=== PATIENT | female | born 1935 | race Caucasian/White ===

== ENCOUNTER 2018-10-28 13:16 | Inpatient (IN) | payer MEDICARE, OTHER ==
[~2018-10-28] VITALS: Ht 154.9 cm; Wt 78.9 kg
--- NOTE | 2018-10-28 13:16 | NUR ---
PT BIB PRIVATE EMT FROM HOME FOR MED CLEARANCE, ON HOLD FOR GD, AAOX2-3, RESPIRATIONS EVEN AND UNLABORED, NO SOB, DENIES ANY PAIN/DISCOMFORT, NAD NOTED, PT ON MONITOR, PENDING ER PROVIDER MARILYN
[2018-10-28] MEDS ORDERED: DONE5TAB34 PO (14:34)
[2018-10-28] MEDS ORDERED: ATOR40TA PO (14:34)
[2018-10-28] MEDS ORDERED: ALPR0.25 PO (14:34)
[2018-10-28] MEDS ORDERED: METO25TA20 PO (14:34)
[2018-10-28 14:50] LABS: BASOPHILS % (AUTO) 0.8 % (0.0-2.0); EOSINOPHILS % (AUTO) 0.2 % (0.0-6.0); HEMATOCRIT 41 % (33-45); HEMOGLOBIN 13.8 g/dL (11.5-14.8); LYMPHOCYTES # (AUTO) 1.1 /CMM (0.8-4.8); LYMPHOCYTES % (AUTO) 19.8 % (20.0-44.0); MEAN CORPUSCULAR HGB CONC 34 g/dl (31.0-36.0); MEAN CORPUSCULAR VOLUME 92 fL (82-100); MONOCYTES # (AUTO) 0.3 /CMM (0.1-1.30); MONOCYTES % (AUTO) 4.7 % (2.0-12.0); NEUTROPHILS # (AUTO) 4.2 /CMM (1.8-8.9); NEUTROPHILS % (AUTO) 74.5 % (43.0-81.0); PLATELET COUNT (AUTO) 112 /CMM (150-450); RED BLOOD CELL COUNT(AUTO) 4.48 MIL/uL (4.0-5.2); WHITE BLOOD COUNT (AUTO) 5.6 K/uL (4.3-11.0)
--- NOTE | 2018-10-28 15:10 | NUR ---
URINE COLLECTED AND SENT TO LAB
[2018-10-28 15:13] LABS: ALANINE AMINOTRANSFERASE 18 U/L (12-78); ALCOHOL, BLOOD < 3 mg/dL (0-0); ALKALINE PHOSPHATASE 99 U/L (46-116); ASPARTATE AMINOTRANSFERASE 19 U/L (15-37); BILIRUBIN,DIRECT 0.1 mg/dL (0.0-0.2); BILIRUBIN,TOTAL 0.4 mg/dL (0.2-1.0); CALCIUM, SERUM 8.4 mg/dL (8.5-10.1); CARBON DIOXIDE 30 mmol/L (21-32); CHLORIDE 108 mmol/L (98-107); CREATININE 0.9 mg/dL (0.6-1.3); GLUCOSE 91 mg/dL (74-106); SODIUM SERUM 147 mmol/L (136-145); TOTAL PROTEIN, SERUM 5.9 g/dL (6.4-8.2); UREA NITROGEN, BLOOD 12 mg/dL (7-18)
[2018-10-28 15:16] LABS: ACETAMINOPHEN < 2 ug/ml (10-30); POTASSIUM 2.8 mmol/L (3.5-5.1); SALICYLATE < 2.8 mg/dL (2.8-20.0)
[2018-10-28 15:26] LABS: BILIRUBIN,URINE SMALL (NEGATIVE); BLOOD, URINE Moderate Ery/uL (NEGATIVE); COLOR,URINE Yellow (YELLOW); KETONES,URINE 40 (NEGATIVE); LEUKOCYTE ESTERASE ,URINE Trace (NEGATIVE); NITRITE, URINE Negative (NEGATIVE); PROTEIN,URINE Trace mg/dl (NEGATIVE); UGLUCOSE Negative (NEGATIVE); UROBILINOGEN,URINE 0.2 EU/dL (0.2)
[2018-10-28 15:30] LABS: APPEARANCE,URINE SLIGHTLY CLOUDY (CLEAR)
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
[2018-10-28 15:42] LABS: BACTERIA,URINE Moderate /HPF (None Seen)
[2018-10-28 15:43] LABS: MUCUS,URINE Many /LPF (None Seen); SQUAMOUS EPITHELIAL CELL,UR Few /HPF (None Seen)
[2018-10-28] MEDS ORDERED: CEPHALEXIN MONOHYDRATE 500 MG CAPSULE PO ONE (15:57)
[2018-10-28] MEDS ORDERED: POTASSIUM CHLORIDE 20 MEQ TAB.PRT.SR PO ONE (15:58)
[2018-10-28] MEDS ORDERED: POTASSIUM CHLORIDE 20 MEQ POWDER PACKET PO ONE (16:00)
--- NOTE | 2018-10-28 16:56 | NUR ---
REPORT GIVEN TO CLAUDE PIMENTEL FOR [facility] ROOM 218-A GPS
[2018-10-28] MEDS ORDERED: CEPHALEXIN MONOHYDRATE 500 MG CAPSULE PO SCH (17:00)
--- NOTE | 2018-10-28 17:37 | NUR ---
PT TRANSPORTED TO GPS 218 VIA [facility]
[2018-10-28 18:00] VITALS: BP 161/72
[2018-10-28] MEDS ORDERED: TEMAZEPAM 7.5 MG CAPSULE PO PRN (18:00)
[2018-10-28] MEDS ORDERED: MAGNESIUM HYDROXIDE 30 ML UDC PO PRN (18:00)
[2018-10-28] MEDS ORDERED: ACETAMINOPHEN 325 MG TABLET PO PRN (18:00)
[2018-10-28] MEDS ORDERED: MAG HYDROX/AL HYDROX/SIMETH 30 ML UDC PO PRN (18:00)
--- NOTE | 2018-10-28 18:48 | NUR ---
GAS METER REPAIRER GPS RECEIVED PATIENT FROM E.R. DEPARTMENT VIA RNEY AT AROUND 1750, AA/OX2, WITH CONFUSION AT TIMES, BUT COOPERATIVE, NAD, ABLE TO AMBULATE WITH UNSTEADY GAIT, NOTED PATIENT LIMPING, SKIN ASSESSMENT COMPLETED, PHOTOS TAKEN AND PLACED IN CHART, CONTRABAND TAKEN, DR. MOSELEY MADE AWARE OF ADMISSION AND ORDERS GIVEN, ENDORSED TO ONCOMING NURSE FOR THE ADMISSION PROCESS AND CONTINUITY OF CARE.
[2018-10-28 20:00] VITALS: BP 123/55
[2018-10-28] MEDS: METOPROLOL TARTRATE 50 MG TABLET PO SCH (20:27)
[2018-10-29 07:20] LABS: CHOLESTEROL 126 mg/dL (<200); HDL CHOLESTEROL 69 mg/dL (40-60); LDL 48 mg/dL (0-99); TRIGLYCERIDES 74 mg/dL (30-150)
[2018-10-29 08:00] VITALS: BP 158/78
[2018-10-29 08:35] LABS: ALANINE AMINOTRANSFERASE 20 U/L (12-78); ALKALINE PHOSPHATASE 96 U/L (46-116); ASPARTATE AMINOTRANSFERASE 23 U/L (15-37); BILIRUBIN,TOTAL 0.5 mg/dL (0.2-1.0); CALCIUM, SERUM 8.6 mg/dL (8.5-10.1); CARBON DIOXIDE 26 mmol/L (21-32); CHLORIDE 109 mmol/L (98-107); GLUCOSE 99 mg/dL (74-106); POTASSIUM 3.7 mmol/L (3.5-5.1); SODIUM SERUM 146 mmol/L (136-145); UREA NITROGEN, BLOOD 14 mg/dL (7-18)
[2018-10-29] MEDS: METOPROLOL TARTRATE 50 MG TABLET PO SCH ×2 (09:07→16:52)
[2018-10-29] MEDS: DONEPEZIL 5 MG TABLET PO SCH (09:08)
--- NOTE | 2018-10-29 12:32 | NUR ---
SW contacted APS SW Elinor Joyner and left voicemail acknowledging conversation had between ER SW and her regarding pts discharge plan. SW requested call back to continue discussing pts case.
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
[2018-10-29 16:03] VITALS: BP 160/94
[2018-10-29] MEDS: RIVASTIGMINE TARTRATE 1.5 MG CAPSULE PO SCH (16:50)
[2018-10-29] MEDS: ATORVASTATIN 40 MG TABLET PO SCH (17:08)
[2018-10-29 19:03] VITALS: BP 142/60
[2018-10-29 20:29] VITALS: BP 164/79
[2018-10-30 08:00] VITALS: BP 159/83
[2018-10-30] MEDS: SERTRALINE HCL 50 MG TABLET PO SCH (09:20)
[2018-10-30] MEDS: DONEPEZIL 5 MG TABLET PO SCH (09:20)
[2018-10-30] MEDS: RIVASTIGMINE TARTRATE 1.5 MG CAPSULE PO SCH ×2 (09:20→18:42)
[2018-10-30] MEDS: METOPROLOL TARTRATE 50 MG TABLET PO SCH ×2 (09:21→18:42)
[2018-10-30] MEDS: LORAZEPAM 0.5 MG TABLET PO PRN (09:33)
--- NOTE | 2018-10-30 09:33 | NUR ---
RN NOTES ADMINISTERED ATIVAN 1 MG PO PRN FOR CRYING, PARANOIA, PER PATIENT REQUEST, V/S TAKEN BP 159/ 83, 79. CONTINUED MONITORING.
[2018-10-30 15:52] VITALS: BP 126/68
[2018-10-30] MEDS: ATORVASTATIN 40 MG TABLET PO SCH (18:42)
[2018-10-30 20:00] VITALS: BP 138/57
[2018-10-31 08:00] VITALS: BP 132/74
[2018-10-31] MEDS: SERTRALINE HCL 50 MG TABLET PO SCH (08:11)
[2018-10-31] MEDS: RIVASTIGMINE TARTRATE 1.5 MG CAPSULE PO SCH ×2 (08:11→17:12)
[2018-10-31] MEDS: METOPROLOL TARTRATE 50 MG TABLET PO SCH ×2 (08:12→17:13)
[2018-10-31] MEDS: DONEPEZIL 5 MG TABLET PO SCH (08:12)
[2018-10-31 16:00] VITALS: BP 159/85
[2018-10-31] MEDS: ATORVASTATIN 40 MG TABLET PO SCH (17:13)
[2018-10-31 20:08] VITALS: BP 156/73
[2018-10-31] MEDS: LORAZEPAM 0.5 MG TABLET PO PRN (20:54)
[2018-11-01] MEDS ORDERED: hydrALAZINE HCL 25 MG TABLET PO PRN (01:00)
[2018-11-01 08:00] VITALS: BP 147/70
[2018-11-01] MEDS: DONEPEZIL 5 MG TABLET PO SCH (08:09)
[2018-11-01] MEDS: RIVASTIGMINE TARTRATE 1.5 MG CAPSULE PO SCH ×2 (08:09→16:27)
[2018-11-01] MEDS: METOPROLOL TARTRATE 50 MG TABLET PO SCH ×2 (08:10→16:29)
[2018-11-01] MEDS: SERTRALINE HCL 50 MG TABLET PO SCH (09:10)
[2018-11-01] MEDS: AMLODIPINE BESYLATE 2.5 MG TABLET PO SCH (09:11)
--- NOTE | 2018-11-01 09:44 | NUR ---
ALOK met with pts BOBBI Naranjo [phone] who stated she is working with a placement agency to assist her with finding placement for pt in [facility]. Per BOBBI she would like pt discharged as soon as possible so that she can take pt to her home in [place]. BOBBI also requested ALOK fax 602 form to [facility] Address: [address] [place] [address] . ALOK will consult to psychiatrist regarding discharge and contact facility. Addendum: 11/01/18 at 1011 by ALEX DICKINSON CORRECT NAME OF FACILITY: [facility] Address: [address] [place] [address]
--- NOTE | 2018-11-01 09:49 | NUR ---
ALOK contacted Rhiannon, Custodial Maintenance Worker at [facility] Address: [address] [place] [address] to request 602 form. Rhiannon stated that she would need to received 602 first before being able to assess pt. ALOK explained that ROSIE is planning on taking pt to her home in [place] once discharged from hospital but ALOK will be faxing 602 form to begin referral process. Rhiannon agreed and stated she would fax 602 to ALOK on this present day. Addendum: 11/01/18 at 1011 by ALEX DICKINSON CORRECT NAME OF FACILITY: [facility] Address: [address] [place] [address]
--- NOTE | 2018-11-01 10:00 | NUR ---
SW contacted Psychiatrist Dr Fine, and left a voicemail stating pts DPOA wants to take pt home on this present day.
--- NOTE | 2018-11-01 10:11 | NUR ---
ALOK received 602 form from [facility] Address: [address] [place] [id number] Addendum: 11/02/18 at 1027 by ALEX DICKINSON and placed in pts chart for Hospitalist to complete and sign. ALOK also requested Chest X-ray.
--- NOTE | 2018-11-01 11:30 | NUR ---
SW contacted APS ALOK Joyner and left voicemail for call back.
--- NOTE | 2018-11-01 12:57 | NUR ---
RN-CO: Patient was seen and examined by Dr Cerda.
[2018-11-01 16:00] VITALS: BP 137/80
[2018-11-01] MEDS: ATORVASTATIN 40 MG TABLET PO SCH (17:01)
[2018-11-01] MEDS: LORAZEPAM 0.5 MG TABLET PO PRN (19:51)
[2018-11-01 19:53] VITALS: BP 148/72
[2018-11-02 08:00] VITALS: BP 141/82
[2018-11-02 08:12] LABS: CALCIUM, SERUM 8.9 mg/dL (8.5-10.1); CARBON DIOXIDE 25 mmol/L (21-32); CHLORIDE 106 mmol/L (98-107); CREATININE 0.8 mg/dL (0.6-1.3); GLUCOSE 112 mg/dL (74-106); POTASSIUM 3.5 mmol/L (3.5-5.1); SODIUM SERUM 143 mmol/L (136-145); UREA NITROGEN, BLOOD 16 mg/dL (7-18)
[2018-11-02] MEDS ORDERED: risperiDONE 0.25 MG TABLET PO SCH (09:00)
[2018-11-02] MEDS: RIVASTIGMINE TARTRATE 1.5 MG CAPSULE PO SCH ×2 (09:14→17:03)
[2018-11-02] MEDS: AMLODIPINE BESYLATE 2.5 MG TABLET PO SCH (09:14)
[2018-11-02] MEDS: METOPROLOL TARTRATE 50 MG TABLET PO SCH ×2 (09:14→17:03)
[2018-11-02] MEDS: SERTRALINE HCL 50 MG TABLET PO SCH (09:15)
--- NOTE | 2018-11-02 10:27 | NUR ---
SW contacted pts sister Bita [phone] and left voicemail requesting call back.
--- NOTE | 2018-11-02 10:29 | NUR ---
SW contacted APS ALOK Joyner and left voicemail for call back.
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
[2018-11-02 16:11] VITALS: BP 139/64
[2018-11-02] MEDS: ATORVASTATIN 40 MG TABLET PO SCH (17:03)
[2018-11-02] MEDS: risperiDONE 0.25 MG TABLET PO SCH (17:03)
[2018-11-02 20:18] VITALS: BP 97/64
[2018-11-03 08:00] VITALS: BP 149/69
[2018-11-03] MEDS: RIVASTIGMINE TARTRATE 1.5 MG CAPSULE PO SCH ×2 (08:48→17:11)
[2018-11-03] MEDS: risperiDONE 0.25 MG TABLET PO SCH ×2 (08:48→17:12)
[2018-11-03] MEDS: SERTRALINE HCL 50 MG TABLET PO SCH (08:48)
[2018-11-03] MEDS: METOPROLOL TARTRATE 50 MG TABLET PO SCH ×2 (08:49→17:12)
[2018-11-03] MEDS: AMLODIPINE BESYLATE 2.5 MG TABLET PO SCH (08:49)
--- NOTE | 2018-11-03 12:00 | NUR ---
SW received a phone call from pts BOBBI Terry stating she wishes to take pt home to [place] place at a [facility] Care Facility and wants to know pts discharge date.
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
--- NOTE | 2018-11-03 14:12 | NUR ---
ALOK contacted APS SW Elinor Joyner and left voicemail informing her SW contacted DP and she stated that she wishes to take pt home to [place] [facility]. ALOK stated that she informed DPOA that due to DPOA not being authorized to make medical decisions on behalf of pt and due to open APS case, pt will be discharging to a SNF. ALOK also informed Elinor that [facility] is requesting a call from her and provided her with [facility]'s contact number.
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
[2018-11-03 16:00] VITALS: BP 146/70
[2018-11-03] MEDS: ATORVASTATIN 40 MG TABLET PO SCH (17:12)
[2018-11-03 20:22] VITALS: BP 126/60
[2018-11-03] MEDS: risperiDONE 1 MG TABLET PO SCH (21:13)
[2018-11-04 08:00] VITALS: BP 160/99
--- NOTE | 2018-11-04 09:14 | NUR ---
After reviewing the Durable Power of Meat Grading Machine Operator for Lab Rep paperwork. SW consulted with adjunct faculty for medical terminology and found that the document is questionable as there are crossed out dates and no pt signature. The form is signed by pts boyfriend Zhou Barth and Mara Naranjo who has no relationship with pt. ALOK has faxed a copy to APS Rn [facility] Elinor Joyner for further investigation.
[2018-11-04] MEDS: RIVASTIGMINE TARTRATE 1.5 MG CAPSULE PO SCH ×2 (10:19→17:41)
[2018-11-04] MEDS: risperiDONE 1 MG TABLET PO SCH ×2 (10:19→20:30)
[2018-11-04] MEDS: METOPROLOL TARTRATE 50 MG TABLET PO SCH ×2 (10:20→17:43)
[2018-11-04] MEDS: AMLODIPINE BESYLATE 2.5 MG TABLET PO SCH (10:21)
[2018-11-04] MEDS: SERTRALINE HCL 50 MG TABLET PO SCH (10:22)
[2018-11-04 16:04] VITALS: BP 123/69
[2018-11-04] MEDS: ATORVASTATIN 40 MG TABLET PO SCH (17:43)
[2018-11-04 20:00] VITALS: BP 150/69
[2018-11-05 08:00] VITALS: BP 145/67
[2018-11-05] MEDS: RIVASTIGMINE TARTRATE 1.5 MG CAPSULE PO SCH ×2 (08:16→16:53)
[2018-11-05] MEDS: AMLODIPINE BESYLATE 2.5 MG TABLET PO SCH (08:16)
[2018-11-05] MEDS: risperiDONE 1 MG TABLET PO SCH ×2 (08:17→21:11)
[2018-11-05] MEDS: SERTRALINE HCL 50 MG TABLET PO SCH (08:17)
[2018-11-05] MEDS: METOPROLOL TARTRATE 50 MG TABLET PO SCH ×2 (08:18→16:53)
[2018-11-05 16:00] VITALS: BP 119/69
[2018-11-05] MEDS: ATORVASTATIN 40 MG TABLET PO SCH (17:04)
[2018-11-05 20:00] VITALS: BP 128/67
[2018-11-06 08:00] VITALS: BP 130/72
[2018-11-06] MEDS: risperiDONE 1 MG TABLET PO SCH ×2 (08:31→21:09)
[2018-11-06] MEDS: RIVASTIGMINE TARTRATE 1.5 MG CAPSULE PO SCH ×2 (08:31→15:23)
[2018-11-06] MEDS: SERTRALINE HCL 50 MG TABLET PO SCH (08:31)
[2018-11-06] MEDS: METOPROLOL TARTRATE 50 MG TABLET PO SCH ×2 (08:32→17:23)
[2018-11-06] MEDS: AMLODIPINE BESYLATE 2.5 MG TABLET PO SCH (08:33)
[2018-11-06 16:00] VITALS: BP 133/64
[2018-11-06] MEDS: ATORVASTATIN 40 MG TABLET PO SCH (17:23)
[2018-11-06 20:00] VITALS: BP 100/57
[2018-11-07] MEDS: RIVASTIGMINE TARTRATE 1.5 MG CAPSULE PO SCH ×3 (03:00→22:01)
--- NOTE | 2018-11-07 04:03 | NUR ---
GPS RN NOTE: PATIENT REFUSED RIVASTIGMINE, EXPLAINED THE RISK AND BENEFITS X 3 ATTEMPTS, PATIENT STILL REFUSED
[2018-11-07 08:00] VITALS: BP 129/69
[2018-11-07 08:02] LABS: BASOPHILS % (AUTO) 0.2 % (0.0-2.0); EOSINOPHILS % (AUTO) 0.1 % (0.0-6.0); HEMATOCRIT 42 % (33-45); HEMOGLOBIN 13.9 g/dL (11.5-14.8); LYMPHOCYTES # (AUTO) 0.6 /CMM (0.8-4.8); LYMPHOCYTES % (AUTO) 10.6 % (20.0-44.0); MEAN CORPUSCULAR HGB CONC 33 g/dl (31.0-36.0); MEAN CORPUSCULAR VOLUME 91 fL (82-100); MONOCYTES # (AUTO) 0.3 /CMM (0.1-1.30); MONOCYTES % (AUTO) 4.7 % (2.0-12.0); NEUTROPHILS # (AUTO) 4.7 /CMM (1.8-8.9); NEUTROPHILS % (AUTO) 84.4 % (43.0-81.0); PLATELET COUNT (AUTO) 63 /CMM (150-450); RED BLOOD CELL COUNT(AUTO) 4.63 MIL/uL (4.0-5.2); WHITE BLOOD COUNT (AUTO) 5.6 K/uL (4.3-11.0)
[2018-11-07 08:13] LABS: CALCIUM, SERUM 8.6 mg/dL (8.5-10.1); CARBON DIOXIDE 26 mmol/L (21-32); CHLORIDE 106 mmol/L (98-107); CREATININE 0.8 mg/dL (0.6-1.3); GLUCOSE 95 mg/dL (74-106); MAGNESIUM 1.8 mg/dL (1.8-2.4); PHOSPHORUS 3.6 mg/dL (2.5-4.9); POTASSIUM 3.9 mmol/L (3.5-5.1); SODIUM SERUM 140 mmol/L (136-145); UREA NITROGEN, BLOOD 25 mg/dL (7-18)
[2018-11-07 08:23] LABS: BAND % (MANUAL) 1 % (0.0-5.0); EOSINOPHILS % (MANUAL) 1 % (0-4); LYMPHOCYTES % (MANUAL) 14 % (16-48); MONOCYTES % (MANUAL) 6 % (0-11.0); NEUTROPHILS % (MANUAL) 78 (42-76)
[2018-11-07] MEDS: risperiDONE 1 MG TABLET PO SCH ×2 (08:46→22:01)
[2018-11-07] MEDS: METOPROLOL TARTRATE 50 MG TABLET PO SCH ×2 (08:46→16:38)
[2018-11-07] MEDS: SERTRALINE HCL 50 MG TABLET PO SCH (08:46)
[2018-11-07] MEDS: AMLODIPINE BESYLATE 2.5 MG TABLET PO SCH (08:47)
[2018-11-07 16:00] VITALS: BP 108/65
[2018-11-07] MEDS: ATORVASTATIN 40 MG TABLET PO SCH (17:41)
[2018-11-07 19:00] VITALS: BP 105/57
[2018-11-07 20:21] VITALS: BP 108/57
[2018-11-08 08:00] VITALS: BP 163/85
--- NOTE | 2018-11-08 08:29 | NUR ---
ALOK faxed SNF referral to Reina curriculum coordinator at [facility] Address: [address] [place] [address] and [facility] Address: [address] [place] [address] for review.
[2018-11-08] MEDS: RIVASTIGMINE TARTRATE 1.5 MG CAPSULE PO SCH ×2 (08:37→21:06)
[2018-11-08] MEDS: risperiDONE 1 MG TABLET PO SCH ×2 (08:38→21:16)
[2018-11-08] MEDS: SERTRALINE HCL 50 MG TABLET PO SCH (08:38)
[2018-11-08] MEDS: METOPROLOL TARTRATE 50 MG TABLET PO SCH ×2 (08:40→17:14)
[2018-11-08] MEDS: AMLODIPINE BESYLATE 2.5 MG TABLET PO SCH (08:41)
--- NOTE | 2018-11-08 11:56 | NUR ---
SW received a call from Barbie, tell[facility] Address: [address] [facility], [place] [address] stating pt has been accepted to the facility.
[2018-11-08 16:00] VITALS: BP 126/70
[2018-11-08] MEDS: ATORVASTATIN 40 MG TABLET PO SCH (17:12)
[2018-11-08 20:00] VITALS: BP 111/69
[2018-11-09 08:00] VITALS: BP 125/76
[2018-11-09] MEDS: RIVASTIGMINE TARTRATE 1.5 MG CAPSULE PO SCH ×2 (09:21→21:07)
[2018-11-09] MEDS: AMLODIPINE BESYLATE 2.5 MG TABLET PO SCH (09:22)
[2018-11-09] MEDS: risperiDONE 1 MG TABLET PO SCH ×2 (09:22→21:07)
[2018-11-09] MEDS: METOPROLOL TARTRATE 50 MG TABLET PO SCH ×2 (09:23→17:00)
[2018-11-09] MEDS: SERTRALINE HCL 50 MG TABLET PO SCH (09:23)
[2018-11-09 16:00] VITALS: BP 131/84
[2018-11-09] MEDS: ATORVASTATIN 40 MG TABLET PO SCH (18:10)
[2018-11-09 20:52] VITALS: BP 109/66
[2018-11-10 08:00] VITALS: BP 139/74
[2018-11-10] MEDS: RIVASTIGMINE TARTRATE 1.5 MG CAPSULE PO SCH (08:45)
[2018-11-10 08:46] VITALS: BP 139/74
[2018-11-10] MEDS: SERTRALINE HCL 50 MG TABLET PO SCH (08:46)
[2018-11-10] MEDS: risperiDONE 1 MG TABLET PO SCH (08:46)
[2018-11-10] MEDS: AMLODIPINE BESYLATE 2.5 MG TABLET PO SCH (08:46)
[2018-11-10] MEDS: METOPROLOL TARTRATE 50 MG TABLET PO SCH (08:46)
--- NOTE | 2018-11-10 13:02 | NUR ---
NURSING DISCHARGE NOTE: PT WAS DISCHARGED TODAY AT 1300 TO [facility] ([facility] [address] [place], [place] [id number] VIA AMBULANCE. PT LEFT THE UNIT VIA GURNEY ACCOMPANIED BY 2 DIRECTOR OF NUCLEAR MEDICINE. PT IS A&OX1-2, CONFUSED, FORGETFUL, REDIRECTABLE, PLEASANT, CALM, COOPERATIVE, MED COMPLIANT. PT DENIES SI/HI AT THE TIME OF DISCHARGE. DISCHARGE ORDER WAS GIVEN BY DR. MOSELEY AND PT IS MEDICALLY CLEARED FOR DISCHARGE PER DR. HEARN. PT WAS COOPERATIVE WITH DISCHARGE PROCESS AND HAS SIGNED ALL PAPERWORK. PT REFUSED SKIN ASSESSMENT AND PICTURES TO BE TAKEN. VS STABLE, NO S/S OF DISTRESS NOTED. REPORT WAS GIVEN TO CLAUDE THEODORE AT [phone]. ALL BELONGINGS WERE RETURNED TO PT BUT PT IS MISSING HER JEANS. TRACE EVIDENCE TECHNICIAN HAS BEEN MADE AWARE.
--- NOTE | 2018-11-10 13:49 | NUR ---
Discharge Note: Pt discharged on Thursday11/10/18 to [facility] ([facility] located at [facility] [place] [address] . Pt discharged at 12:30pm via [facility] ambulance trip #[id number]. Pts friend Mara Naranjo ([phone]) was notified of the discharge. Upon discharge, the pt appeared to be in a dysphoric mood and presented with an irritated affect due to an issue with her belongings. Pt denied both suicidal and homicidal ideation as well as auditory and visual hallucinations. Pt will be under the care of her psychiatrist, Dr. Mayo Fine, located at [address] [place] [address]; [phone] and her diamond polisher, Dr. Casimiro Barrera, located at [address] [address]; [phone].
== END 2018-11-10 13:00 | DRG 881 ==
LOC: ER 13:19 → GPS 17:11
PROVIDERS: ADMIT Psychiatry & Neurology Psychiatry; ATTEND Psychiatry & Neurology Psychiatry
DX: F32.9 Major depressive disorder, single episode, unspecified (principal); N39.0 Urinary tract infection, site not specified; E44.1 Mild protein-calorie malnutrition; E87.0 Hyperosmolality and hypernatremia; F03.90 Unspecified dementia, unspecified severity, without behavioral disturbance, psychotic disturbance, mood disturbance, and anxiety; E87.6 Hypokalemia; E78.5 Hyperlipidemia, unspecified; I10 Essential (primary) hypertension; I25.10 Atherosclerotic heart disease of native coronary artery without angina pectoris; Z73.6 Limitation of activities due to disability; Z68.32 Body mass index [BMI] 32.0-32.9, adult; E88.09 Other disorders of plasma-protein metabolism, not elsewhere classified; B96.20 Unspecified Escherichia coli [E. coli] as the cause of diseases classified elsewhere
CPT/HCPCS: 36415; 71045-TC; 80048-TC; 80053-TC; 80061-TC; 80076-TC; 80305; 81000-TC; 83735-TC; 84100-TC; 85025-TC; 87086-TC; 87186-TC; G0480